=== PATIENT | female | born 1965 | race Caucasian/White ===

== ENCOUNTER → 2017-02-07 | Outpatient (CLI) | payer BC ==
--- NOTE | 2017-02-07 13:26 | MAMMOGRAPHY REPORT ---
BILATERAL DIGITAL SCREENING MAMMOGRAM TOMOSYNTHESIS WITH CAD: 02/07/2017 CLINICAL HISTORY: Routine screening. TECHNIQUE: Breast tomosynthesis in addition to standard 2D mammography was performed. Current study was also evaluated with a Computer Aided Detection (CAD) system. COMPARISON: Comparison is made to exams dated: 02/02/2016 mammogram, 02/15/2015 mammogram, 02/06/2015 m ammogram, 01/27/2015 mammogram, 01/21/2014 mammogram, and 01/20/2013 mammogram - [facility]. BREAST COMPOSITION: There are scattered areas of fibroglandular density in both breasts. FINDINGS: No suspicious masses, calcifications, or areas of architectural distortion are noted in ei ther breast. There has been no significant interval change compared to prior exams. Bilateral benign -appearing calcifications are not significantly changed. A few circumscribed round/oval benign-appea ring masses are seen bilaterally, which are considered benign given the multiplicity and bilaterality and likely represent cysts. IMPRESSION: ACR BI-RADS CATEGORY 2: BENIGN There is no mammographic evidence of malignancy. A 1 year screening mammogram is recommended. The pa tient will receive written notification of the results. Approximately 10% of breast cancers are not detected with mammography. A negative mammographic report should not delay biopsy if a clinically suggestive mass is present. Charmaine Knight M.D. ah/:02/07/2017 11:06:55 Appointment Specialist: Krystle EMERY)(M), [facility] letter sent: Normal 1/2 BI-RADS Code: ACR BI-RADS Category 2: Benign
== END | disposition home or self-care (01) ==
LOC: C.MAMM 07:54
PROVIDERS: ATTEND Obstetrics & Gynecology
DX: Z12.31 Encounter for screening mammogram for malignant neoplasm of breast (principal)

== ENCOUNTER → 2017-10-08 | Outpatient (CLI) | payer OTHER | END | disposition home or self-care (01) | LOC: C.PAPS 13:36 | PROVIDERS: ATTEND Obstetrics & Gynecology | DX: Z12.4 Encounter for screening for malignant neoplasm of cervix (principal) ==

== ENCOUNTER 2022-06-03 09:20 | Inpatient (IN) ==
[2022-06-03] MEDS ORDERED: SODIUM CHLORIDE 0.9% 1000ML 1,000 ML IV ONE (09:29)
[2022-06-03] MEDS ORDERED: KETOROLAC TROMETHAMINE 15 MG/ML VIAL IV ONE (09:29)
--- NOTE | 2022-06-03 09:34 | Emergency Department Note ---
Impression & Plan Pulmonary embolism, Shortness of breath ED Provider Note NAME: SHAWNA GRACE AGE: 57 SEX: F : 1965 ARRIVES VIA: Ambulance INFORMANT: Patient ED PROVIDER(S): Meek Brown DO CHIEF COMPLAINT: pain in back of chest with breathing HPI: Patient is a 57-year-old female who presents to the ER for right upper back pain with breathing. This woke her up this morning at 5 AM. It is only present with breathing. It is in her mid ribs. She notes it is worse when she takes a deeper breath. Shallow breaths to improve it. If she does not take a breath or move her chest wall she has no pain. No chest pain or shortness of breath. The pain does take her breath away however when she takes a deep breath. No belly pain, nausea, vomiting, or diarrhea. No dysuria, urgency, or frequency. She just had surgery at [facility] on her right knee for a tibial plateau fracture which occurred back in April. She notes her knee has been feeling great. She denies any tingling or numbness. She was just discharged this past Friday. Pain in the upper thoracic region is not reproducible ROS: See above HPI for pertinent positives & negatives. A total of 10 systems reviewed and were otherwise negative. PAST MEDICAL HISTORY:See Below PAST SURGICAL HISTORY:See Below FAMILY HISTORY:See Below SOCIAL HISTORY:See Below HOME MEDICATIONS:See Below ALLERGIES:See Below VITALS:See Below PHYSICAL EXAMINATION: GENERAL: Sitting up in bed, alert, well appearing, well nourished, no distress, non-toxic EYE EXAM: normal conjunctiva. OROPHARYNX: no exudate, no erythema, lips, buccal mucosa, and tongue normal and mucous membranes are moist NECK: supple, no nuchal rigidity, no adenopathy, non-tender LUNGS: Clear to auscultation. Normal chest wall mechanics HEART: no murmurs, S1 normal and S2 normal ABDOMEN: abdomen soft, non-tender, normo-active bowel sounds, no masses, no rebound or guarding. BACK: Back is symmetrical on inspection and there is no deformity, no midline tenderness, no CVA tenderness. Pain ribs 6 through 8 mid back nonreproducible UPPER EXTREMITIES: upper extremities are grossly normal. LOWER EXTREMITIES: Right calf larger than left and wrapped in Jose Martin bandage. DP 2 out of 4. Good cap refill. NEURO EXAM: Normal sensorium, cranial nerves II-XII grossly intact, normal speech, no gross weakness of arms, no gross weakness of legs. MEDICAL DECISION MAKING: Patient is a 57-year-old female who presents the ER for right-sided chest pain postop. IV was established blood work is obtained. Labs show mild leukocytosis 12,000. Hemoglobin at 10. INR unremarkable. BMP with LFTs bilirubin was unremarkable. Troponin was negative. Lipase unremarkable. COVID was negative. CT angio of the chest shows extensive right-sided PE. No other bleeding risk factors other than the recent surgery. She denies any previous head bleeds, trauma, coughing up blood, urinating blood or dark tarry stools. No vomiting blood. Patient was updated bedside. Discussed with Dr. José Sanchez admitted for extensive PE. Triage Nursing notes reviewed. Limited review of prior medical records performed Vital Signs: reviewed and remarkable for no significant abnormalities Differential diagnosis: Cardiac ischemia, aortic dissection, pulmonary embolism, pneumothorax, pneumonia, pericarditis, myocarditis, esophageal rupture, GERD, cholecystitis, pancreatitis, musculoskeletal, as well as other pathologies. ER treatment provided: See below Diagnostics interpreted by me: ECG: Sinus rhythm rate 90 Normal axis T wave inversion in inferior leads QTC 447 Cardiac Monitoring: An order was placed for continuous cardiac monitoring. The monitor shows a rate of 90 with sinus rhythm. Laboratory studies: As stated above and show below. Imaging studies: CT angio chest shows extensive PE Consultation(s): As described above Procedures: none Critical Care: I have personally spent 32 minutes of critical care time in the direct management of this patient. This includes bedside care, interpretation of diagnostic studies, and testing, discussion with consultants, patient, and family members, and other required patient management activities. This 32 minutes is in excess of all separately billable procedures. Past Med/Surg History Medical History (Updated 06/03/22 @ 15:43 by Meek Brown DO) Labia minora agglutination Postmenopausal bleeding Surgical History (Updated 06/03/22 @ 12:49 by Aminata Ramey PA-C) H/O oral surgery H/O right knee surgery Family History (Updated 06/03/22 @ 12:50 by Aminata Ramey PA-C) Aunt Breast cancer Osteoporosis Ovarian cancer maternal aunt Sister Cerebral palsy Grandfather (Paternal) Heart disease Father Hypertension Lung cancer Mother Uterine cancer Other Diabetes Denies family history of Deep vein thrombosis Clotting disorder Colorectal cancer Social History Smoking Status: Never smoker Second Hand Exposure: No; Hx Alcohol Use: Yes Hx Substance Use: No Preferred Language: Nepali Feels Safe at Home: Yes Allergies Allergies Allergy/AdvReac Type Severity Reaction Status Date / Time No Known Allergies Allergy Verified 04/30/22 12:39 Home Meds Home Medications Medication Instructions Recorded Confirmed citalopram 10 mg tablet (Celexa) 10 mg PO DAILY 04/12/22 06/03/22 gabapentin 300 mg capsule 300 mg PO TID PRN Pain 06/03/22 06/03/22 Previous Rx's Medication Instructions Recorded estradiol 0.01% (0.1 mg/gram) 1 g vaginal DAILY #42.5 grams 04/30/22 vaginal cream Results & Data (ED) Vital Signs Vital Signs - 24 hr 06/03/22 09:20 06/03/22 09:20 06/03/22 09:20 Pulse Rate 96 H Pulse Rate from SpO2 Sensor Pulse Rhythm Regular Pulse Strength Normal Respiratory Rate 19 Respiratory Effort / Characteristics Non-Labored Non-Labored Respiratory Depth Normal Normal Respiratory Pattern Regular Regular Blood Pressure 150/77 H Blood Pressure Mean 101 Blood Pressure Position Sitting Pulse Oximetry 100 100 Oxygen Delivery Method Room Air Room Air Sepsis Recent Fever Within 48 Hours No Sepsis New/Unexplained Change in Mental Status N/A Sepsis Action Taken by Nursing No Action Required 06/03/22 09:33 06/03/22 09:45 06/03/22 10:00 Pulse Rate 92 H 93 H 91 H Pulse Rate from SpO2 Sensor Pulse Rhythm Pulse Strength Respiratory Rate 18 19 23 Respiratory Effort / Characteristics Respiratory Depth Respiratory Pattern Blood Pressure Blood Pressure Mean Blood Pressure Position Pulse Oximetry 100 100 99 Oxygen Delivery Method Room Air Room Air Room Air Sepsis Recent Fever Within 48 Hours Sepsis New/Unexplained Change in Mental Status Sepsis Action Taken by Nursing 06/03/22 10:30 06/03/22 10:55 06/03/22 11:00 Pulse Rate 89 93 H Pulse Rate from SpO2 Sensor 97 H Pulse Rhythm Pulse Strength Respiratory Rate 16 16 24 Respiratory Effort / Characteristics Respiratory Depth Respiratory Pattern Blood Pressure Blood Pressure Mean Blood Pressure Position Pulse Oximetry 98 98 98 Oxygen Delivery Method Room Air Room Air Room Air Sepsis Recent Fever Within 48 Hours Sepsis New/Unexplained Change in Mental Status Sepsis Action Taken by Nursing 06/03/22 11:15 06/03/22 11:30 06/03/22 11:45 Pulse Rate 85 88 93 H Pulse Rate from SpO2 Sensor Pulse Rhythm Pulse Strength Respiratory Rate 22 23 16 Respiratory Effort / Characteristics Respiratory Depth Respiratory Pattern Blood Pressure Blood Pressure Mean Blood Pressure Position Pulse Oximetry 98 99 99 Oxygen Delivery Method Room Air Room Air Room Air Sepsis Recent Fever Within 48 Hours Sepsis New/Unexplained Change in Mental Status Sepsis Action Taken by Nursing Laboratory Data Result diagrams: 06/03/22 09:45 06/03/22 09:45 Lab Results 06/03/22 06/03/22 06/03/22 Range/Units 09:45 09:45 09:50 WBC 12.08 H (4.8-10.8) K/ul RBC 3.68 L (3.93-5.22) M/uL Hgb 10.7 L (12.0-16.0) g/dl POC Hgb (12.0-16.0) g/dl Hct 31.2 L (34.1-44.9) % POC Hct (37-47) % MCV 84.8 (80.0-100.0) fL MCH 29.1 (25.0-34.0) pg MCHC 34.3 (32.0-36.0) g/dL RDW Std Deviation 36.5 (36.4-46.3) fL RDW Coeff of Phoebe 11.9 (11.5-14.5) % Plt Count 313 (130-400) K/uL MPV 9.6 (9.4-12.3) fL Immature Gran % (Auto) 0.9 % Neut % (Auto) 80.0 % Lymph % (Auto) 10.0 % Swisher % (Auto) 7.3 % Eos % (Auto) 1.1 % Baso % (Auto) 0.7 % Neut # (Auto) 9.67 H (1.4-6.5) K/uL Lymph # (Auto) 1.21 (1.2-3.4) K/uL Swisher # (Auto) 0.88 H (0.24-0.82) K/uL Eos # (Auto) 0.13 (0-0.50) K/uL Baso # (Auto) 0.08 (0-0.2) K/uL Immature Gran # (Auto) 0.11 H (0.00-0.02) K/uL PT 10.9 (9.0-12.0) Seconds INR 1.0 (0.9-1.1) APTT 27.7 (21.0-31.0) Seconds PTT Ratio 1.0 POC Sodium (135-144) mmol/L Sodium 137 (136-145) mmol/L POC Potassium (3.3-5.0) mmol/L Potassium 3.6 (3.5-5.1) mmol/L POC Chloride (101-112) mmol/L Chloride 101 (98-107) mmol/L Carbon Dioxide 28 (21-32) mmol/L POC Total CO2 (24-31) mmol/L Anion Gap 8 (3-11) POC Anion Gap (16-25) mmol/L POC BUN (7-18) mg/dl BUN 9 (6-23) mg/dl Creatinine 0.77 (0.6-1.2) mg/dl POC Creatinine (0.6-1.3) mg/dl Est Cr Clr Drug Dosing 108.2 ml/min Est GFR ( Amer) 100.0 ml/min Est GFR (Non-Af Amer) 86.3 ml/min BUN/Creatinine Ratio 11.7 (10-20) Glucose 95 (70-99(Fasting)) mg/dl POC Glucose (other) (70-99) mg/dl Calcium 8.7 (8.5-10.1) mg/dl POC Ioniz Calcium Last (1.12-1.32) mmol/l Total Bilirubin 0.8 (0.2-1.0) mg/dl AST 20 (13-39) U/L ALT 10 (7-52) U/L Alkaline Phosphatase 115 H (34-104) U/L Troponin I High Sens 4.2 (0-14) pg/ml Total Protein 6.8 (6.0-8.3) gm/dl Albumin 3.5 (3.4-5.0) gm/dl Globulin 3.3 (2.5-4.0) gm/dl Albumin/Globulin Ratio 1.1 (0.9-2) Lipase 24 (11-82) U/L SARS-CoV-2, RNA, NAAT (NEGATIVE) 06/03/22 06/03/22 Range/Units 09:51 11:50 WBC (4.8-10.8) K/ul RBC (3.93-5.22) M/uL Hgb (12.0-16.0) g/dl POC Hgb 10.5 L (12.0-16.0) g/dl Hct (34.1-44.9) % POC Hct 31 L (37-47) % MCV (80.0-100.0) fL MCH (25.0-34.0) pg MCHC (32.0-36.0) g/dL RDW Std Deviation (36.4-46.3) fL RDW Coeff of Phoebe (11.5-14.5) % Plt Count (130-400) K/uL MPV (9.4-12.3) fL Immature Gran % (Auto) % Neut % (Auto) % Lymph % (Auto) % Swisher % (Auto) % Eos % (Auto) % Baso % (Auto) % Neut # (Auto) (1.4-6.5) K/uL Lymph # (Auto) (1.2-3.4) K/uL Swisher # (Auto) (0.24-0.82) K/uL Eos # (Auto) (0-0.50) K/uL Baso # (Auto) (0-0.2) K/uL Immature Gran # (Auto) (0.00-0.02) K/uL PT (9.0-12.0) Seconds INR (0.9-1.1) APTT (21.0-31.0) Seconds PTT Ratio POC Sodium 136 (135-144) mmol/L Sodium (136-145) mmol/L POC Potassium 3.6 (3.3-5.0) mmol/L Potassium (3.5-5.1) mmol/L POC Chloride 99 L (101-112) mmol/L Chloride (98-107) mmol/L Carbon Dioxide (21-32) mmol/L POC Total CO2 25 (24-31) mmol/L Anion Gap (3-11) POC Anion Gap 16.0 (16-25) mmol/L POC BUN 7 (7-18) mg/dl BUN (6-23) mg/dl Creatinine (0.6-1.2) mg/dl POC Creatinine 0.7 (0.6-1.3) mg/dl Est Cr Clr Drug Dosing ml/min Est GFR ( Amer) ml/min Est GFR (Non-Af Amer) ml/min BUN/Creatinine Ratio (10-20) Glucose (70-99(Fasting)) mg/dl POC Glucose (other) 103 H (70-99) mg/dl Calcium (8.5-10.1) mg/dl POC Ioniz Calcium Last 1.11 L (1.12-1.32) mmol/l Total Bilirubin (0.2-1.0) mg/dl AST (13-39) U/L ALT (7-52) U/L Alkaline Phosphatase (34-104) U/L Troponin I High Sens (0-14) pg/ml Total Protein (6.0-8.3) gm/dl Albumin (3.4-5.0) gm/dl Globulin (2.5-4.0) gm/dl Albumin/Globulin Ratio (0.9-2) Lipase (11-82) U/L SARS-CoV-2, RNA, NAAT NEGATIVE (NEGATIVE) Administered Medications Heparin Sodium/Dextrose (Heparin Sodium/Dextrose) 25,000 units in 500 mls @ 30 mls/hr IV .[id number] [facility]; Protocol Stop: 07/03/22 11:44 Last Admin: 06/03/22 11:47 Dose: 1,500 units/hr, 30 mls/hr Documented By: JOSE Co-signed By: MES Discontinued Medications Heparin Sodium (Porcine) (Heparin Sod (Porcine) 1000 Unit/Ml) 1 units IV NOW ONE Stop: 06/03/22 11:43 Last Admin: 06/03/22 11:46 Dose: 5,000 units Documented By: JOSE Co-signed By: MES Sodium Chloride (Nss 1000ml) 1,000 mls @ 999 mls/hr IV .[id number] ONE Stop: 06/03/22 10:29 Last Infusion: 06/03/22 12:17 Dose: 0 mls/hr Documented By: Admin: 06/03/22 09:55 Dose: 999 mls/hr Documented By: JOSE Ioversol (Optiray 300 500ml) 120 ml IV ONCE ONE Stop: 06/03/22 10:49 Last Admin: 06/03/22 10:50 Dose: 120 ml Documented By: JAMIE Ketorolac Tromethamine (Ketorolac Tromethamine 15 Mg/Ml Vial) 10 mg IV NOW ONE Stop: 06/03/22 09:30 Last Admin: 06/03/22 09:55 Dose: 10 mg Documented By: JOSE Imaging Data Radiologist's Impression: Chest CTA 06/03/22 09:29 CT ANGIOGRAPHY OF THE CHEST, PULMONARY EMBOLUS PROTOCOL CLINICAL HISTORY: Pleuritic chest pain. Recent surgery. COMPARISON STUDY: Chest radiograph June 03, 2022 at 10:02 AM. TECHNIQUE: Following IV administration of 120 mL of Optiray, helical axial images of the chest were obtained utilizing the pulmonary embolus protocol. Maximal intensity projections and sagittal and coronal reformats were viewed on an independent 3D workstation. IV contrast was administered without complication. Automated exposure control was utilized for the study. A dose lowering technique was utilized adhering to the principles of ALARA. CT DOSE: 495.76 mGy.cm FINDINGS: Extensive right-sided pulmonary emboli are noted, including emboli within the right pulmonary artery. Emboli extend into the the lobar and segmental branches of the right lung. A trace right pleural effusion is noted. Subpleural right lower lobe opacity is present. There is a probable underlying right lower lobe pulmonary infarct. There is borderline cardiomegaly. No CT evidence for right heart strain. There is no thoracic aortic dissection. No enlarged axillary, mediastinal or hilar lymph nodes are present. Bony thorax is unremarkable. Visualized portions of the upper abdomen are unremarkable. IMPRESSION: Extensive right-sided pulmonary emboli, including near occlusive emboli within the right pulmonary artery, extending into the lobar and segmental branches of the right lung. Suspected right lower lobe pulmonary infarct. Trace right pleural effusion. No CT evidence for right heart strain. ACT 112: Negative or not required by law. Electronically signed by: Filipe Avila M.D. 06/03/2022 11:19 AM Chest X-Ray 06/03/22 09:30 XR chest 1V portable HISTORY: 57 years-old Female Chest Pain . Acute chest pain COMPARISON: None TECHNIQUE: Portable AP view of the chest FINDINGS: Cardiomediastinal and hilar silhouettes are within normal limits. No pneumothorax, pleural effusion, airspace consolidation or overt pulmonary edema. Bones of the chest appear grossly intact. IMPRESSION: No acute process. ACT 112: Negative or not required by law. The above report was generated using voice recognition software. It may contain grammatical, syntax or spelling errors. Electronically signed by: Anil Silveira M.D. 06/03/2022 10:10 AM Discharge Plan Visit Data Chief Complaint: Shortness of Breath/Dyspnea Stated Complaint: SOB, UPPER THORACIC PAIN ED Provider: Meek Brown Discharge Problem: Pulmonary embolism, Shortness of breath Patient Disposition: Admitted As Inpatient Discharge Instructions Interventions: ED Discharge Assessment Last Done: 06/03/22 14:28
[2022-06-03 09:56] LABS: Basophils # (auto) 0.08 K/uL (0-0.2); Basophils % (auto) 0.7 %; Eosinophils # (auto) 0.13 K/uL (0-0.50); Eosinophils % (auto) 1.1 %; Hematocrit (blood only) 31.2 % (34.1-44.9); Hemoglobin 10.7 g/dl (12.0-16.0); Immature Granulocytes # (auto) 0.11 K/uL (0.00-0.02); Immature Granulocytes % (auto) 0.9 %; Lymphocytes # (auto) 1.21 K/uL (1.2-3.4); Mean Corpuscular Hemoglobin 29.1 pg (25.0-34.0); Mean Corpuscular Hgb Conc 34.3 g/dL (32.0-36.0); Mean Corpuscular Volume 84.8 fL (80.0-100.0); Mean Platelet Volume 9.6 fL (9.4-12.3); Monocytes # (auto) 0.88 K/uL (0.24-0.82); Monocytes % (auto) 7.3 %; Neutrophils # (auto) 9.67 K/uL (1.4-6.5); Platelet Count 313 K/uL (130-400); RDW Coefficient of Variation 11.9 % (11.5-14.5); RDW Standard Deviation 36.5 fL (36.4-46.3); Red Blood Count 3.68 M/uL (3.93-5.22); White Blood Count 12.08 K/ul (4.8-10.8)
--- NOTE | 2022-06-03 10:11 | XRay Report ---
XR chest 1V portable HISTORY: 57 years-old Female Chest Pain . Acute chest pain COMPARISON: None TECHNIQUE: Portable AP view of the chest FINDINGS: Cardiomediastinal and hilar silhouettes are within normal limits. No pneumothorax, pleural effusion, airspace consolidation or overt pulmonary edema. Bones of the chest appear grossly intact. IMPRESSION: No acute process. ACT 112: Negative or not required by law. The above report was generated using voice recognition software. It may contain grammatical, syntax o r spelling errors. Electronically signed by: Anil Silveira M.D. 06/03/2022 10:10 AM
[2022-06-03 10:12] LABS: iSTAT Creatinine 0.7 mg/dl (0.6-1.3); iSTAT Hemoglobin 10.5 g/dl (12.0-16.0); iSTAT Ionized Calcium 1.11 mmol/l (1.12-1.32); iSTAT Potassium 3.6 mmol/L (3.3-5.0)
[2022-06-03 10:13] LABS: Albumin Globulin Ratio 1.1 (0.9-2); Albumin Level 3.5 gm/dl (3.4-5.0); BUN Creatinine Ratio 11.7 (10-20); Bilirubin,Total 0.8 mg/dl (0.2-1.0); Calcium 8.7 mg/dl (8.5-10.1); Creatinine Clr Calc Pharmacy 108.2 ml/min; Est GFR (Non-African American) 86.3 ml/min; Globulin 3.3 gm/dl (2.5-4.0); Potassium 3.6 mmol/L (3.5-5.1); Total Protein 6.8 gm/dl (6.0-8.3)
[2022-06-03 10:19] LABS: Troponin I High Sensitivity 4.2 pg/ml (0-14)
[2022-06-03] MEDS ORDERED: OPTIRAY 300 500mL IV ONE (10:48)
--- NOTE | 2022-06-03 11:20 | CT Scan Report ---
CT ANGIOGRAPHY OF THE CHEST, PULMONARY EMBOLUS PROTOCOL CLINICAL HISTORY: Pleuritic chest pain. Recent surgery. COMPARISON STUDY: Chest radiograph June 03, 2022 at 10:02 AM. TECHNIQUE: Following IV administration of 120 mL of Optiray, helical axial images of the chest were o btained utilizing the pulmonary embolus protocol. Maximal intensity projections and sagittal and cor onal reformats were viewed on an independent 3D workstation. IV contrast was administered without co mplication. Automated exposure control was utilized for the study. A dose lowering technique was ut ilized adhering to the principles of ALARA. CT DOSE: 495.76 mGy.cm FINDINGS: Extensive right-sided pulmonary emboli are noted, including emboli within the right pulmon marty artery. Emboli extend into the the lobar and segmental branches of the right lung. A trace right pleural effusion is noted. Subpleural right lower lobe opacity is present. There is a probable underl kunal right lower lobe pulmonary infarct. There is borderline cardiomegaly. No CT evidence for right h eart strain. There is no thoracic aortic dissection. No enlarged axillary, mediastinal or hilar lymph nodes are present. Bony thorax is unremarkable. Visualized portions of the upper abdomen are unremar kable. IMPRESSION: Extensive right-sided pulmonary emboli, including near occlusive emboli within the right pulmonary ar stevo, extending into the lobar and segmental branches of the right lung. Suspected right lower lobe pulmonary infarct. Trace right pleural effusion. No CT evidence for right heart strain. ACT 112: Negative or not required by law. Electronically signed by: Filipe Avila M.D. 06/03/2022 11:19 AM
[2022-06-03] MEDS ORDERED: Heparin IV Adult Wt-Based Standard WITH Bolus Protocol IV STA (11:27)
[2022-06-03] MEDS ORDERED: HEPARIN SOD (PORCINE) 1000 UNIT/ML IV ONE (11:42)
[2022-06-03] MEDS ORDERED: Heparin IV Adult Wt-Based Standard WITH Bolus Protocol IV SCH (11:45)
[2022-06-03] MEDS: HEPARIN SODIUM/DEXTROSE 25,000 UNITS/500 ML BAG IV SCH (11:47)
--- NOTE | 2022-06-03 11:49 | History & Physical Report ---
Date of Service June 03, 2022 Assessment & Plan (1) Pulmonary embolism: Plan: - Chest CTA: Extensive right-sided pulmonary emboli, including near occlusive emboli within the right pulmonary artery, extending into the lobar and segmental branches of the right lung. Suspected right lower lobe pulmonary infarct. Trace right pleural effusion. No CT evidence for right heart strain. - VS wnl, without tachycardia, hypotension, or hypoxia. - Trop neg, EKG with NSR. - Patient started on heparin gtt w/ bolus in ED. - Repeat PTT in AM, patient can likely be d/c'd on oral anticoagulation tomorrow AM if she remians asymptomatic and stable. (2) Depression: Plan: - Continue citalopram. (3) S/p tibial fracture: Plan: - POD #3. - Dressing changes daily. - Utilizing Tylenol 1000mg Q8h for pain, gabapentin 300 mg TID prn, and oxycodone 5 mg Q6h prn. Plan - OBS to med/tele. - Therapeutic heparin gtt for PE. - Full Code. History of Present Illness Chief Complaint: right sided back pain with respirations since this morning Primary Care Provider: Venkata Bermudez DO Liv Carpio is a 57-year-old female with past medical history significant for right knee surgery this past Friday currently POD #3 who is presenting today with difficulty breathing. Around 5 in the morning, she woke up with right upper back pain which is only present when breathing and radiates to her rib cage. It is significantly worse with taking deep breaths, but she does get alleviation with shallow breaths. Staying still also alleviates pain. She is not having any chest pain or shortness of breath, however the pain takes her breath away. She recently had surgery on her right knee for tibial plateau fracture and was discharged Friday. Up until this point, she has been feeling well and covering properly. She has not had one sided leg pain or swelling, although her right leg has been in a dressing. No personal or family history of clotting disorders that she is aware of. Chest CT with an extensive right-sided pulmonary emboli, including near occlusive emboli within the right pulmonary artery, extending into the lobar and segmental branches of the right lung. Suspected right lower lobe pulmonary infarct. Trace right pleural effusion. No CT evidence for right heart strain. Allergies Allergy/AdvReac Type Severity Reaction Status Date / Time No Known Allergies Allergy Verified 04/30/22 12:39 Home Medications Medication Instructions Recorded Confirmed Type citalopram 10 mg tablet (Celexa) 10 mg PO DAILY 04/12/22 06/03/22 History estradiol 0.01% (0.1 mg/gram) 1 g vaginal DAILY #42.5 grams 04/30/22 06/03/22 Rx vaginal cream gabapentin 300 mg capsule 300 mg PO TID PRN Pain 06/03/22 06/03/22 History Past Med/Surg History Medical History (Updated 06/03/22 @ 12:55 by Aminata Ramey PA-C) Labia minora agglutination Postmenopausal bleeding Surgical History (Updated 06/03/22 @ 12:49 by Aminata Ramey PA-C) H/O oral surgery H/O right knee surgery Family History (Updated 06/03/22 @ 12:50 by Aminata Ramey PA-C) Aunt Breast cancer Osteoporosis Ovarian cancer maternal aunt Sister Cerebral palsy Grandfather (Paternal) Heart disease Father Hypertension Lung cancer Mother Uterine cancer Other Diabetes Denies family history of Deep vein thrombosis Clotting disorder Colorectal cancer Social History Smoking Status: Never smoker Second Hand Exposure: No; Hx Alcohol Use: Yes Hx Substance Use: No Preferred Language: Georgian Feels Safe at Home: Yes Review of Systems Review of Systems: Constitutional: No fever/chills, weakness, fatigue, myalgias, anorexia, night sweats Eyes: No diplopia, no worsening or blurred vision ENT: normal hearing, no trouble swallowing Respiratory: right upper/middle back pain with respirations; No cough, sputum, dyspnea at rest or on exertion Cardiovascular: No chest pain, tightness or palpitations Abdomen: No pain, nausea, vomiting, diarrhea or constipation : Denies dysuria, hematuria, increased urgency/frequency, urinary retention Musculoskeletal: No joint pain, calf pain, swelling Neurologic: No weakness, numbness/tingling, or balance problems Psychiatric: No anxiety or depression Skin: No rash or itch Physical Exam Physical Exam: General: awake, alert, no apparent distress Head: Normocephalic, atraumatic ENT: PERRL, EOMI, no pharyngeal exudate, mucous membranes moist Chest: Clear to auscultation, on room air, no adventitious breath sounds, right sided back pain is not reproducible. Cardiac: Regular rate and rhythm, no murmur, no JVD, normal peripheral pulses, good capillary refill Abdominal: NABS x 4 quadrants, soft, nontender to palpation, no rebound, guarding or tenderness Extremities: Normal inspection, no peripheral edema or erythema, calfs nontender to palpation Psych: Normal mood and affect Neuro: AAO x 3, strength intact bilaterally and rated 5/5, no motor deficits, speech is clear, no peripheral sensory deficits Skin: no rash or erythema Results & Data Results & Data ([facility]) Vital Signs (Past 12 Hours) Vital Signs Pulse Resp BP Pulse Ox O2 Del Method 06/03/22 10:30 89 16 98 Room Air 06/03/22 10:00 91 H 23 99 Room Air 06/03/22 09:45 93 H 19 100 Room Air 06/03/22 09:33 92 H 18 100 Room Air 06/03/22 09:20 100 Room Air 06/03/22 09:20 96 H 19 150/77 H 100 Room Air Laboratory Results Abnormal lab results 06/03/22 06/03/22 06/03/22 Range/Units 09:45 09:45 09:51 WBC 12.08 H (4.8-10.8) K/ul RBC 3.68 L (3.93-5.22) M/uL Hgb 10.7 L (12.0-16.0) g/dl POC Hgb 10.5 L (12.0-16.0) g/dl Hct 31.2 L (34.1-44.9) % POC Hct 31 L (37-47) % Neut # (Auto) 9.67 H (1.4-6.5) K/uL [place] # (Auto) 0.88 H (0.24-0.82) K/uL Immature Gran # (Auto) 0.11 H (0.00-0.02) K/uL POC Chloride 99 L (101-112) mmol/L POC Glucose (other) 103 H (70-99) mg/dl POC Ioniz Calcium Last 1.11 L (1.12-1.32) mmol/l Alkaline Phosphatase 115 H (34-104) U/L Diagnostic Findings Chest CTA 06/03/22 09:29 CT ANGIOGRAPHY OF THE CHEST, PULMONARY EMBOLUS PROTOCOL CLINICAL HISTORY: Pleuritic chest pain. Recent surgery. COMPARISON STUDY: Chest radiograph June 03, 2022 at 10:02 AM. TECHNIQUE: Following IV administration of 120 mL of Optiray, helical axial images of the chest were obtained utilizing the pulmonary embolus protocol. Maximal intensity projections and sagittal and coronal reformats were viewed on an independent 3D workstation. IV contrast was administered without complication. Automated exposure control was utilized for the study. A dose lowering technique was utilized adhering to the principles of ALARA. CT DOSE: 495.76 mGy.cm FINDINGS: Extensive right-sided pulmonary emboli are noted, including emboli within the right pulmonary artery. Emboli extend into the the lobar and segmental branches of the right lung. A trace right pleural effusion is noted. Subpleural right lower lobe opacity is present. There is a probable underlying right lower lobe pulmonary infarct. There is borderline cardiomegaly. No CT evidence for right heart strain. There is no thoracic aortic dissection. No enlarged axillary, mediastinal or hilar lymph nodes are present. Bony thorax is unremarkable. Visualized portions of the upper abdomen are unremarkable. IMPRESSION: Extensive right-sided pulmonary emboli, including near occlusive emboli within the right pulmonary artery, extending into the lobar and segmental branches of the right lung. Suspected right lower lobe pulmonary infarct. Trace right pleural effusion. No CT evidence for right heart strain. ACT 112: Negative or not required by law. Electronically signed by: Filipe Avila M.D. 06/03/2022 11:19 AM Chest X-Ray 06/03/22 09:30 XR chest 1V portable HISTORY: 57 years-old Female Chest Pain . Acute chest pain COMPARISON: None TECHNIQUE: Portable AP view of the chest FINDINGS: Cardiomediastinal and hilar silhouettes are within normal limits. No pneumothorax, pleural effusion, airspace consolidation or overt pulmonary edema. Bones of the chest appear grossly intact. IMPRESSION: No acute process. ACT 112: Negative or not required by law. The above report was generated using voice recognition software. It may contain grammatical, syntax or spelling errors. Electronically signed by: Anil Silveira M.D. 06/03/2022 10:10 AM Code Status & VTE Plan Code Status Normal sinus rhythm Normal ECG No previous ECGs available. Supervising Physician Co-Signing Physician Notes Patient was seen and examined independently I discussed the case with Aminata Ramey PAC I reviewed pertinent past medical social family history and also the plan of care and agree with the plan of care. Patient is postop with a provoked pulm embolism from previous tibial surgery this with near occlusion of the right pulmonary artery She is relatively symptom-free at this time in the emergency department Heparin drip was begun Will keep patient for observation likely transition to a DOAC if stable in 24 hours or so Patient's right leg is bandaged she change the bandage daily this is with dry sterile dressing change Card exam is regular I hear no gallops there are no rubs Lungs are clear Right leg is bandaged from thigh to ankle Therapeutic anticoagulation with heparin Any exceptions will be noted below PG Care Time/CCT Total # of Minutes Spent Total Time Spent with Patient: Total time spent is greater than 50% in coordination of care (as documented) at patient's floor/unit and/or counseling patient: Coding Level of Care Code 86237 Initial Inpt Care Lvl 3 Diagnoses Pulmonary embolism I26.99 Depression F32.A S/p tibial fracture Z87.81
[2022-06-03 12:05] LABS: Partial Thromboplastin Time 27.7 Seconds (21.0-31.0); Prothrombin Time 10.9 Seconds (9.0-12.0)
[2022-06-03] MEDS ORDERED: ONDANSETRON INJ 2 MG/ML 2 ML VIAL IV PRN (14:26)
[2022-06-03] MEDS ORDERED: oxyCODONE HCL IR 5 MG TAB (IMMEDIATE RELEASE) PO PRN (14:26)
[2022-06-03] MEDS ORDERED: GABAPENTIN 300 MG CAP PO PRN (14:26)
--- NOTE | 2022-06-03 15:50 | Electrocardiogram Report ---
Test Reason : Blood Pressure : / mmHG Vent. Rate : 090 BPM Atrial Rate : 090 BPM P-R Int : 148 ms QRS Dur : 074 ms QT Int : 366 ms P-R-T Axes : 047 027 025 degrees QTc Int : 447 ms Normal sinus rhythm Normal ECG No previous ECGs available Confirmed by Silvestre Kohli ([id number]) on 06/03/2022 3:50:06 PM Referred By: REFERRED SELF Confirmed By:Silvetsre Kohli
[2022-06-03 20:41] LABS: Partial Thromboplastin Time 53.8 Seconds (21.0-31.0)
[2022-06-04 00:18] LABS: Partial Thromboplastin Ratio 1.8
[2022-06-04 00:35] LABS: Partial Thromboplastin Time 48.2 Seconds (21.0-31.0)
[2022-06-04] MEDS ORDERED: FLUARIX QUADRIVALENT 0.5 ML SYR IM ONE (00:37)
[2022-06-04] MEDS: POLYETHYLENE (MIRALAX) 17 GM PACK PO PRN ×2 (00:54→13:20)
[2022-06-04] MEDS: HEPARIN SODIUM/DEXTROSE 25,000 UNITS/500 ML BAG IV SCH (03:43)
[2022-06-04 07:02] LABS: Basophils % (auto) 0.8 %; Eosinophils # (auto) 0.16 K/uL (0-0.50); Eosinophils % (auto) 1.3 %; Hematocrit (blood only) 29.6 % (34.1-44.9); Hemoglobin 10.1 g/dl (12.0-16.0); Immature Granulocytes # (auto) 0.22 K/uL (0.00-0.02); Immature Granulocytes % (auto) 1.8 %; Lymphocytes # (auto) 2.02 K/uL (1.2-3.4); Lymphocytes % (auto) 16.3 %; Mean Corpuscular Hemoglobin 28.8 pg (25.0-34.0); Mean Corpuscular Hgb Conc 34.1 g/dL (32.0-36.0); Mean Corpuscular Volume 84.3 fL (80.0-100.0); Mean Platelet Volume 9.7 fL (9.4-12.3); Monocytes # (auto) 0.95 K/uL (0.24-0.82); Monocytes % (auto) 7.6 %; Neutrophils # (auto) 8.97 K/uL (1.4-6.5); Neutrophils % (auto) 72.2 %; Platelet Count 338 K/uL (130-400); RDW Coefficient of Variation 11.9 % (11.5-14.5); RDW Standard Deviation 36.4 fL (36.4-46.3); Red Blood Count 3.51 M/uL (3.93-5.22); White Blood Count 12.42 K/ul (4.8-10.8)
[2022-06-04 07:27] LABS: Partial Thromboplastin Ratio 1.9
[2022-06-04 07:30] LABS: Partial Thromboplastin Time 52.3 Seconds (21.0-31.0)
[2022-06-04] MEDS: CITALOPRAM 20 MG TAB PO SCH (07:59)
[2022-06-04] MEDS: ACETAMINOPHEN 500 MG TAB PO PRN ×2 (09:44→17:50)
--- NOTE | 2022-06-04 11:43 | Ultrasound Report ---
RIGHT LOWER EXTREMITY VENOUS DOPPLER CLINICAL HISTORY: Pulmonary emboli; eval RLE DVT COMPARISON STUDY: No previous studies for comparison. TECHNIQUE: Sonography of the deep venous system of the right lower extremity was performed. Compress ion and augmentation were evaluated. FINDINGS: Right common femoral artery is patent. There is deep venous thrombus within the right super ficial femoral and popliteal veins. Right calf vessels are not well visualized on this exam. IMPRESSION: Deep venous thrombus within the right superficial femoral and popliteal veins. Right calf vessels obscured. ACT 112: Negative or not required by law. Electronically signed by: Filipe Avila M.D. 06/04/2022 11:41 AM
[2022-06-04] MEDS: POLYETHYLENE (MIRALAX) 17 GM PACK PO SCH ×2 (13:26→20:15)
[2022-06-04] MEDS: SENNA 8.6 MG TAB PO SCH (13:26)
--- NOTE | 2022-06-04 16:59 | Hospitalist Progress Note ---
Date of Service June 04, 2022 Assessment & Plan (1) Pulmonary embolism: Plan: Admission Chest CTA: Extensive right-sided pulmonary emboli, including near occlusive emboli within the right pulmonary artery, extending into the lobar and segmental branches of the right lung. Suspected right lower lobe pulmonary infarct. Trace right pleural effusion. No CT evidence for right heart strain. RLE doppler also + for DVT. Started on heparin drip in ER and remains on such. I extensively discussed her case with Dr Gina Ayala from the anticoagulation clinic. Although this is a provoked VTE event (recent immobility due to fracture, followed by surgery) it is concerning that she failed DVT prophylaxis with lovenox. Further, there is a family h/o VTE (mother with PEs). Thus, inherited hypercoagulability state may be present. Given her borderline morbid obesity, moderate PE burden on CT chest, and recent failing of SC lovenox (DVT proph dosing) Dr Ayala and I both feel that lovenox bridge with coumadin is our best option moving forward. To that end will stop heparin drip. Start lovenox 120mg SC BID. Start warfarin 7.5mg daily. INR in am. Patient aware of above plan. Given the extensive clot burden will plan on 6 months as opposed to 3 months of Rx. She is good candidate to follow with Dr Ayala in the anticoagulation clinic although she expressed an interest in home INR checks upon discharge. Will need to explore this. (2) Right leg DVT: Plan: as seen on doppler today. provoked DVT in the setting of recent right tibial fracture and s/p ORIF. see #1 above. (3) Pulmonary infarction: Plan: RLL. as seen on CTA chest. likely the main cause of her pleuritic back pain. should improved in the next 7-10 days. pain meds prn. O2 sats remain stable. will advise 2-step o2 test before discharge to be complete. (4) S/p tibial fracture: Plan: RIGHT leg. POD #4 s/p ORIF at [facility]. Dressing changes daily. Utilizing Tylenol 1000mg Q8h prn for pain, gabapentin 300 mg TID prn, and oxycodone 5 mg Q6h prn. Needs bowel regimen. (5) Depression: Plan: Continue citalopram. (6) Obesity (BMI 30-39.9): Plan: BMI 38 Plan change observation status to full admission updated at bedside will ask PT/OT to see to ensure she is mobile enough to return home and also to check O2 sats w/ walking she is partial weight-bearing to RLE with her knee brace on total time today - complex care coordination - 45 min Admission and Anticipated Discharge Date Admission Date: June 03, 2022 Subjective patient reports that prior to her recent right tibial plateau fracture surgery (done at [facility]) she was fairly immobile for about 1-2 weeks from the fracture at time of d/c from [place] she was placed on lovenox 40mg once daily for DVT proph she took this faithfully she believes her mother had PEs during her lifetime patient herself has never had VTE patient continues with very mild pleuritic pain over the right lower back denies any dyspnea does have some mild right leg pain from recent surgery at bedside today; questions answered Review of Systems Review of Systems: gen - no fevers; appetite wnl cv - pleuritic pain as above pulm - no cough, no dyspnea GI - some constipation Physical Exam Physical Exam: gen - obese, NAD, pleasant neck - no JVD heart - RRR, s1 s2, no murmur lungs - CTA b/l, mildly decreased BS bases abd - soft NT ND BS+ ext - right thigh/leg larger than LLE, mild-moderate edema right leg, minimal on left leg; pulses 2+ b/l musculo - dressings intact over R knee Results & Data Results & Data ([facility]) Vital Signs (Past 12 Hours) Vital Signs Temp Pulse Pulse Resp BP Pulse Ox O2 Del Method 06/04/22 15:35 36.8 C 81 18 104/72 97 Room Air 06/04/22 15:20 91 H 06/04/22 08:00 37.2 C 94 H 18 111/76 94 Room Air 06/04/22 07:06 87 Laboratory Results Laboratory Results - last 24 hr 06/04/22 06/04/22 06:22 06:22 WBC 12.42 H RBC 3.51 L Hgb 10.1 L Hct 29.6 L MCV 84.3 MCH 28.8 MCHC 34.1 RDW Std Deviation 36.4 RDW Coeff of Phoebe 11.9 Plt Count 338 MPV 9.7 Immature Gran % (Auto) 1.8 Neut % (Auto) 72.2 Lymph % (Auto) 16.3 [place] % (Auto) 7.6 Eos % (Auto) 1.3 Baso % (Auto) 0.8 Neut # (Auto) 8.97 H Lymph # (Auto) 2.02 [place] # (Auto) 0.95 H Eos # (Auto) 0.16 Baso # (Auto) 0.10 Immature Gran # (Auto) 0.22 H APTT 52.3 H* PTT Ratio 1.9 Diagnostic Findings Venous Doppler Study 06/04/22 09:40 RIGHT LOWER EXTREMITY VENOUS DOPPLER CLINICAL HISTORY: Pulmonary emboli; eval RLE DVT COMPARISON STUDY: No previous studies for comparison. TECHNIQUE: Sonography of the deep venous system of the right lower extremity was performed. Compression and augmentation were evaluated. FINDINGS: Right common femoral artery is patent. There is deep venous thrombus within the right superficial femoral and popliteal veins. Right calf vessels are not well visualized on this exam. IMPRESSION: Deep venous thrombus within the right superficial femoral and popliteal veins. Right calf vessels obscured. ACT 112: Negative or not required by law. Electronically signed by: Filipe Avila M.D. 06/04/2022 11:41 AM PG Care Time/CCT Total # of Minutes Spent Total Time Spent with Patient: Total time spent is greater than 50% in coordination of care (as documented) at patient's floor/unit and/or counseling patient: Coding Level of Care Code 10654 Subseq Hosp Care Lvl 3 Diagnoses Pulmonary embolism I26.99 Right leg DVT I82.401 Pulmonary infarction I26.99 S/p tibial fracture Z87.81 Depression F32.A Obesity (BMI 30-39.9) E66.9
[2022-06-04] MEDS: WARFARIN SOD 7.5 MG TAB PO SCH (17:57)
[2022-06-04] MEDS ORDERED: [UNRECOGNIZED DRUG - REMARK] ONE (19:00)
[2022-06-04] MEDS: ENOXAPARIN INJ 120 MG/0.8 ML SYR SQ SCH (20:14)
[2022-06-05] MEDS: ACETAMINOPHEN 500 MG TAB PO PRN ×2 (05:23→13:37)
[2022-06-05] MEDS: ENOXAPARIN INJ 120 MG/0.8 ML SYR SQ SCH (06:31)
[2022-06-05 07:06] LABS: Hemoglobin 9.8 g/dl (12.0-16.0); Mean Corpuscular Hemoglobin 28.8 pg (25.0-34.0); Mean Corpuscular Hgb Conc 33.8 g/dL (32.0-36.0); Mean Corpuscular Volume 85.3 fL (80.0-100.0); Mean Platelet Volume 9.7 fL (9.4-12.3); Platelet Count 372 K/uL (130-400); RDW Coefficient of Variation 12.1 % (11.5-14.5); RDW Standard Deviation 37.4 fL (36.4-46.3); White Blood Count 9.56 K/ul (4.8-10.8)
[2022-06-05 07:14] LABS: INR 1.2 (0.9-1.1); Prothrombin Time 12.4 Seconds (9.0-12.0)
[2022-06-05 07:29] LABS: Est GFR (African American) 112.8 ml/min; Est GFR (Non-African American) 97.3 ml/min
[2022-06-05] MEDS ORDERED: ERGOCALCIFEROL 50,000 UNITS 1250 MCG CAP PO ONE (08:59)
[2022-06-05] MEDS: CITALOPRAM 20 MG TAB PO SCH (09:21)
[2022-06-05] MEDS: SENNA 8.6 MG TAB PO SCH (09:23)
[2022-06-05] MEDS: POLYETHYLENE (MIRALAX) 17 GM PACK PO SCH (09:23)
[2022-06-05] MEDS ORDERED: ENOXAPARIN INJ 120 MG/0.8 ML SYR SQ SCH ×2 (16:00)
[2022-06-05] MEDS: WARFARIN SOD 7.5 MG TAB PO SCH (16:17)
--- NOTE | 2022-06-05 16:58 | Discharge Summary ---
Date of Service date of admission - June 03, 2022 date of discharge - June 05, 2022 Admission HPI Per Admitting Provider Liv Carpio is a 57-year-old female with past medical history significant for right knee surgery this past Friday at [facility], currently POD #3, who is presenting today with difficulty breathing. Around 5 in the morning, she woke up with right upper back pain which is only present when breathing and radiates to her rib cage. It is significantly worse with taking deep breaths, but she does get alleviation with shallow breaths. Staying still also alleviates pain. She is not having any chest pain or shortness of breath, however the pain takes her breath away. She recently had surgery on her right knee for tibial plateau fracture and was discharged Friday. Up until this point, she has been feeling well and covering properly. She has not had one sided leg pain or swelling, although her right leg has been in a dressing. No personal or family history of clotting disorders that she is aware of. Chest CT with an extensive right-sided pulmonary emboli, including near occlusive emboli within the right pulmonary artery, extending into the lobar and segmental branches of the right lung. Suspected right lower lobe pulmonary in farct. Trace right pleural effusion. No CT evidence for right heart strain. Principal Diagnosis 1. right-sided pulmonary emboli 2. RLE DVTs 3. probable pulmonary infarction of the RLL 4. right tibial plateau fracture s/p ORIF (prior to admission at outside hospital) 5. vitamin D deficiency Discharge Exam gen - obese, NAD, pleasant neck - no JVD heart - RRR, s1 s2, no murmur lungs - CTA b/l, mildly decreased BS bases abd - soft NT ND BS+ ext - right thigh/leg much larger than LLE, moderate-severe edema right leg, minimal on left leg; pulses 2+ b/l musculo - dressings intact over R knee, large incision clean/dry/intact with no drainage psych - a/o x 3 Discharge Data Allergies Allergy/AdvReac Type Severity Reaction Status Date / Time No Known Allergies Allergy Verified 04/30/22 12:39 Consultations PT, OT Ordered Studies Chest CTA 06/03/22 09:29 CT ANGIOGRAPHY OF THE CHEST, PULMONARY EMBOLUS PROTOCOL CLINICAL HISTORY: Pleuritic chest pain. Recent surgery. COMPARISON STUDY: Chest radiograph June 03, 2022 at 10:02 AM. TECHNIQUE: Following IV administration of 120 mL of Optiray, helical axial images of the chest were obtained utilizing the pulmonary embolus protocol. Maximal intensity projections and sagittal and coronal reformats were viewed on an independent 3D workstation. IV contrast was administered without complication. Automated exposure control was utilized for the study. A dose lowering technique was utilized adhering to the principles of ALARA. CT DOSE: 495.76 mGy.cm FINDINGS: Extensive right-sided pulmonary emboli are noted, including emboli within the right pulmonary artery. Emboli extend into the the lobar and segmen jefry branches of the right lung. A trace right pleural effusion is noted. Subpleural right lower lobe opacity is present. There is a probable underlying right lower lobe pulmonary infarct. There is borderline cardiomegaly. No CT evidence for right heart strain. There is no thoracic aortic dissection. No enlarged axillary, mediastinal or hilar lymph nodes are present. Bony thorax is unremarkable. Visualized portions of the upper abdomen are unremarkable. IMPRESSION: Extensive right-sided pulmonary emboli, including near occlusive emboli within the right pulmonary artery, extending into the lobar and segmental branches of the right lung. Suspected right lower lobe pulmonary infarct. Trace right pleural effusion. No CT evidence for right heart strain. ACT 112: Negative or not required by law. Electronically signed by: Filipe Avila M.D. 06/03/2022 11:19 AM Chest X-Ray 06/03/22 09:30 XR chest 1V portable HISTORY: 57 years-old Female Chest Pain . Acute chest pain COMPARISON: None TECHNIQUE: Portable AP view of the chest FINDINGS: Cardiomediastinal and hilar silhouettes are within normal limits. No pneumothorax, pleural effusion, airspace consolidation or overt pulmonary edema. Bones of the chest appear grossly intact. IMPRESSION: No acute process. ACT 112: Negative or not required by law. The above report was generated using voice recognition software. It may contain grammatical, syntax or spelling errors. Electronically signed by: Anil Silveira M.D. 06/03/2022 10:10 AM Venous Doppler Study 06/04/22 09:40 RIGHT LOWER EXTREMITY VENOUS DOPPLER CLINICAL HISTORY: Pulmonary emboli; eval RLE DVT COMPARISON STUDY: No previous studies for comparison. TECHNIQUE: Sonography of the deep venous system of the right lower extremity was performed. Compression and augmentation were evaluated. FINDINGS: Right common femoral artery is patent. There is deep venous thrombus within the right superficial femoral and popliteal veins. Right calf vessels are not well visualized on this exam. IMPRESSION: Deep venous thrombus within the right superficial femoral and popliteal veins. Right calf vessels obscured. ACT 112: Negative or not required by law. Electronically signed by: Filipe Avila M.D. 06/04/2022 11:41 AM Hospital Course (1) Pulmonary embolism: Admission Chest CTA: Extensive right-sided pulmonary emboli, including near occlusive emboli within the right pulmonary artery, extending into the lobar and segmental branches of the right lung. Suspected right lower lobe pulmonary infarct. Trace right pleural effusion. No CT evidence for right heart strain. RLE doppler also + for DVT. See #2. Started on heparin drip in ER. She was hemodynamically stable her entire hospital stay. O2 sats were normal in room air the entire stay. She never had hypoxia. Although this was a provoked VTE event (recent immobility due to fracture, followed by surgery) it is concerning that she failed DVT prophylaxis with lovenox. She had been discharged from [facility] with lovenox 40mg SC daily. She was compliant with such upon discharge. Further, there is a family h/o VTE (mother with PEs). Thus, inherited hypercoagulability state may also be present. Given her borderline morbid obesity, moderate PE burden on CT chest, and recent failing of SC lovenox (DVT proph dosing) it was felt that a therapeutic lovenox bridge with coumadin was the best option moving forward for her DVT/PE treatment. To that end heparin drip was stopped and she was transitioned to lovenox 120mg SC BID and coumadin 7.5mg daily. Coumadin was initiated on 06/04/22. INR on 06/05/22 was 1.2. Given the extensive clot burden will plan on 6 months of treatment at minimum as opposed to 3 months. Will defer to her outpatient providers performing hereditary & acquired hyp ercoagulability work-up. She was a good candidate to follow with Dr Gina Ayala in the anticoagulation clinic at [facility]. However, she expressed an interest in home INR checks upon discharge during her initial recovery from her right knee surgery. Social work arranged home health services via [facility]. They will perform her first home INR check on , 06/06/22, and likely miguel l be able to check her INR at least 3 days/week. Dr Venkata Bermudez - her family physician at [facility] - will monitor her INRs and manage her anticoagulation for now. Finally, although the risk is likely quite minimal if any in terms of heightening VTE risk, I asked her to HOLD her estradiol cream until she sees her PCP. (2) Right leg DVT: right superficial femoral and popliteal veins. provoked DVT in the setting of recent right tibial fracture -- s/p ORIF at [facility]. see #1 above. (3) Pulmonary infarction: RLL. as seen on CTA chest. likely the main cause of her pleuritic back pain. should improved in the next 7-10 days post-discharge. pain meds prn. O2 sats remained stable her entire hospital stay. Discharge O2 sat was 98% in room air. Due to inability to sufficiently ambulate because of #4 below, a formal 2-step oxygen test was not pursued. (4) S/p tibial fracture: RIGHT leg. s/p ORIF at [facility] within the week prior to this admission. Dressing changes daily at home. Utilizing Tylenol 1000mg Q8h prn for pain, gabapentin 300 mg TID prn, and oxycodone 5 mg Q6h prn. Needs bowel regimen while on narcotics. She has scheduled f/u with [facility] later in May. She has a hinged brace to be used at all times while ambulating. She has been given the ability to use partial weight-bearing to the RLE only at this time. She was seen by PT/OT while here, and both advised ongoing therapy at home. (5) Depression: Continue citalopram. (6) Obesity (BMI 30-39.9): BMI 38 (7) Vitamin D deficiency: 25-OH vitamin D level = 10. advised ergocalciferol 50,000 units once weekly x 8 weeks. recommend repeat 25-OH vit D level at the conclusion of her treatment course. [facility] Attestation I certify that this patient is under my care and that I, or a physicians cement tester assistant working with me, had a face to-face encounter that meets the [id number] encounter requirements with this patient. The encounter with the patient was in whole, or in part, for the following medical condition, which is the primary reason for home health care (list medical condition): I certify that, based on my findings, the following services are medically necessary home health services: My clinical findings support the need for the above services because: Further, I certify that my clinical findings support that this patient is homebound (i.e. absences from home require considerable and taxing effort and are for medical reasons or caodaism services or infrequently or of short duration when for other reasons) because: Certification for Home Health Services: Based on the above findings, I certify that this patient is confined to the home and needs intermittent shelter care, physical therapy and/or speech therapy or continues to need occupational therapy. The patient is under my care, and I have initiated the establishment of the plan of care. This patient will be followed by a physician who will periodically review the plan of care. Total Time Total Time Spent Total Time Spent (In Minutes): 60 Discharge Plan Discharge Items Patient Disposition: Home - Home Health Services Reason For Visit: PE WITH RLE DVT Discharge Diagnosis: 1. right-sided pulmonary emboli 2. right leg DVT 3. recent right tibial fracture with surgery for same 4. right lower lobe pulmonary infarction 5. back pain likely due to #4 (this will improve over the next week or so) 6. vitamin D deficiency with level of 10 (normal >30) Activity: As commented below Activity Comment: follow all instructions given by your orthopedic surgeon at [facility] Comment: follow all previous instructions given by your orthopedic surgery Exercise/Sports: Wait until after follow-up appointment Driving/Machine Use: no driving until cleared by orthopedics Weightbearing: Right partial Non-emergency contact: Primary Care Provider and Specialist Call non-emergency contact if: you have any medication questions, your symptoms worsen, your pain is not controlled, your pain is worsening, your wound has increased redness, your wound has increased drainage and your wound pain has increased Follow-up/Referrals: [facility] [Provider Group] (please see your orthopedic surgeon at [place] as scheduled later this month ) Venkata Bermudez DO [Primary Care Provider] - 06/12/22 4:10 pm (Appointment with [facility] Sy) Diet: Regular Addtl Attending Provider Instructions: Mrs Carpio, You were hospitalized for blood clots of the right leg (DVT) and blood clots of the right lung (pulmonary emboli, or "PE" for short). Your recent risk factors for this include difficulty walking because of your fracture and recent surgery. There may also be a genetic/inherited factor at play given your mother's history of blood clots. Your oxygen levels were high 90s the entire stay. You initially were on heparin drip and then lovenox injections were used in sil[place] of such. You were also started on coumadin. Initially at home you will be on BOTH lovenox and coumadin. When your blood thinner value, also known as the INR, is consistently between 2 and 3 (the INR measures the thickness of the blood) the lovenox will be stopped & the coumadin will be continued. You will likely take coumadin for 6 months. 1. Take lovenox injections - 120mg twice daily subcutaneously, about 12 hours apart. Please take your next dose at home about 7pm tonight. Stay on the lovenox until Dr Bermudez states it is safe to stop. We have given you 2 doses to use tonight and tomorrow morning. Then use the stock from your pharmacy. 2. You received your coumadin at the hospital prior to discharge. No need to take coumadin upon return home tonight. 3. Start your first dose of coumadin TOMORROW, 06/06/22. Take about the same time each day. Many people take it mid to late afternoon. Take 7.5mg (1.5 tablets of the 5mg dose) daily UNLESS otherwise instructed by Dr Bermudez. Your coumadin dose is very likely to lead cargo mover time depending on your INR values. 4. Your first INR check is via home health and will be tomorrow, 06/06/22. These values will be sent to Dr Bermudez for her review. Dr Bermudez will be instructing you on your lovenox and coumadin. The INR value tomorrow will dictate when the next INR is checked. 5. Take vitamin D capsule 50,000 units once weekly x 8 weeks. 6. For prevention of constipation take combination of miralax and/or senokot. Both are [id number]-lff-lbfwala. 7. Continue your brace on your right knee as previously instructed by your surgeon at [place]. 8. Please stop your estradiol cream for now. Estrogen supplementation, even in small amounts, can theoretically increase the risk of clots. Please speak to Dr Bermudez further about this. 9. In about 1 week you can start an ONOFRE wrap and wrap the right leg to provide gentle compression to help with swelling. 10. You can use ice packs on your right leg bruising/swelling as desired. Again follow any previous instructions given by the surgeon at [place]. Follow-up - see separate section Return to [facility] if - * you have bleeding from any location as listed below * you are having worsening shortness of breath * you have chest pains * you have any concerns about your right knee incision/wound * you have uncontrolled pain * any other concerns It was our pleasure to care for you at [facility]! Dr Kathie Birchtl Produce Inspector Provider Instructions: [facility] does not have Lovenox in stock until 06/06 at 12:00pm . You will have $11.00 copay and will be sent home with 2 doses from the hospital. Additional blood thinner instructions - Medication Instructions: * Warfarin is a medicine prescribed to prevent blood clots * Warfarin will thin your blood and help prevent new clots * Take your medications exactly as directed * Never skip a dose. Never take a double dose. If you miss a dose, take it as soon as you remember * It is important for your doctor to monitor your INR. This is a lab test * Your first INR will be drawn on [facility]/06/[facility]22 from [facility] * Your INR goal is between 2 and 3. * Your INR today, 06/05/2022, is 1.2. Risk of Adverse Drug Reactions and Interactions: * Warfarin increases your risk of bleeding * The food you eat and other medications you take can affect how Warfarin works in your body * Ask your doctor about daily aspirin therapy * It is very important to talk with your doctor about all of the other medicines, antibiotics, vitamins or herbal products that you are taking * All of your medication must be approved by your doctor, including new medicines, as well as medicines you have taken before you started taking Warfarin Diet: * In order for Warfarin to work properly, it is important to keep your intake of Vitamin K as consistent as possible * You should avoid any sudden change in Vitamin K intake * Report any significant changes in your diet or weight to your doctor Call your Primary Care doctor if you experience any of the following: * Swelling or Pain in your leg * Sudden, continuous pain deep in a muscle * Pain that worsens when you are active or when you stand still for a long time * Chest Pain * Sudden Shortness of Breath * Rapid or pounding heart beat * Fainting * Dizziness * Cough with blood or bloody sputum * Sweating more than normal * Bruises * Heavy or uncontrolled bleeding * Blood in your urine, stool or vomit * Black or tarry stools * Heavy nose bleeding Caring for Your Self at Home: * Avoid sitting, standing or lying down for long periods without moving your legs and feet * When traveling by car, stop to get out and move around at least once every 3 hours * On long airplane, train or bus rides, get up and move around when possible * If you can't get up, wiggle your toes and tighten your calves to keep your blood moving Follow Up: It is important for you to keep your follow up appointments with your medical provider. Pending Studies at Discharge: No Stand-Alone Forms: [facility], Smoking Cessation Medications and DC Order Prescriptions: New enoxaparin [Lovenox] 120 mg/0.8 mL syringe 120 mg subcut Q12H 7 Days Qty: 11.2 1RF warfarin 5 mg tablet 5 mg PO .daily as directed Qty: 30 0RF ergocalciferol (vitamin D2) 1,250 mcg (50,000 unit) capsule 50,000 unit PO .once weekly Qty: 8 0RF Rx Instructions: first dose on 06/12/22. take for a total of 8 weeks. Continued citalopram [Celexa] 10 mg tablet 10 mg PO DAILY gabapentin 300 mg capsule 300 mg PO TID PRN (Reason: Pain) Discontinued estradiol 0.01 % (0.1 mg/gram) cream 1 g vaginal DAILY Qty: 42.5 4RF Rx Instructions: Use daily for 14 days, then 2-3 times per week thereafter. Discharge Orders: Discharge Order (Routine); Ordered 06/05/22 Ordered By: Kiko Gilbert/Other Patient Handouts: Understanding Deep Vein Thrombosis, Pulmonary Embolism Dc Admission Data Admit Date/Time: 06/03/22 11:56 Attending Provider: Kiko Vázquez Admit Provider: José Boudreaux Primary Care Provider: Venkata Bermudez Other Providers: José Boudreaux ; [facility] Other Interventions: Discharge Summary Assessment (RN) Last Done: 06/05/22 17:04 Coding Level of Care Code D/C DAY MANAGEMENT >30 MINS Diagnoses Pulmonary embolism I26.99 Right leg DVT I82.401 Pulmonary infarction I26.99 S/p tibial fracture Z87.81 Depression F32.A Obesity (BMI 30-39.9) E66.9 Vitamin D deficiency E55.9
== END 2022-06-05 18:44 | disposition home health service (06) | DRG 176 ==
LOC: ED 09:20 → EDINP 09:20 → SUATTDRO 11:56 → 2N 23:56
DX: Z79.890 Hormone replacement therapy; S82.141D Displaced bicondylar fracture of right tibia, subsequent encounter for closed fracture with routine healing; Z82.49 Family history of ischemic heart disease and other diseases of the circulatory system; Z79.899 Other long term (current) drug therapy; Z68.38 Body mass index [BMI] 38.0-38.9, adult; Z98.890 Other specified postprocedural states; E55.9 Vitamin D deficiency, unspecified; F32.A Depression, unspecified; X58.XXXD Exposure to other specified factors, subsequent encounter; I82.811 Embolism and thrombosis of superficial veins of right lower extremity; I26.99 Other pulmonary embolism without acute cor pulmonale; E66.9 Obesity, unspecified